=== PATIENT | female | born 1985 | race Caucasian/White ===

== ENCOUNTER 2016-09-10 06:15 | Day surgery (SDC) | payer BC ==
--- NOTE | 2016-09-09 18:15 | PREOPHP ---
DATE OF ADMISSION: 09/10/2016 HISTORY OF PRESENT ILLNESS: Ms. Carias is a 30-year-old 6, para 3, desires permanent rashaun gical sterilization. MEDICAL HISTORY: None. MEDICATIONS: None. PAST SURGICAL HISTORY: "Vein surgery." OBSTETRICAL HISTORY: Vaginal deliveries x3, termination of x3. GYNECOLOGIC HISTORY: Twelve, regular, 5 to 6 days. Denies any sexually transmitted disease. Sexua lly active with 1 partner. SOCIAL HISTORY: Denies any smoking, drugs or alcohol. FAMILY HISTORY: None. PHYSICAL EXAMINATION: HEENT: Within normal. LUNGS: CTA bilateral. CARDIOVASCULAR: S1, S2. Regular rhythm. ABDOMEN: Soft, nontender. Negative distention. EXTREMITIES: Negative edema. No calf tenderness. VAGINAL: Normal external genitalia. Cervix: Negative CMT, negative lesions. Adnexa: Negative ma ss, nontender bilateral. Fundus within normal limits. ASSESSMENT: Multiparity, desires permanent surgical sterilization. PLAN: Schedule for hysteroscopic tubal occlusion, also with Essure implant, possible laparoscopic b ilateral tubal ligation. Risks, benefits and alternatives explained. All questions were answered. Dictated By: JIE KOCH/HARDEEP Conf#: [id number] DID#: [id number]
[~2016-09-10] VITALS: Ht 172.7 cm; Wt 69.0 kg
[2016-09-10] VITALS (11 sets, daily range): BP systolic 107–120; BP diastolic 70–82; PULSE 68–81; RESP 12–30; Ht 172.7 cm; Wt 69.0 kg
[~2016-09-10 06:15] MED LIST: LACTATED RINGER'S 1,000 ML IV SCH
[2016-09-10 07:15] LABS: ADD SCAN DIFF NO
[2016-09-10 07:22] LABS: BASOPHILS % 0.5 % (0.0-2.0); EOSINOPHILS # 0.2 10^3/ul (0.0-0.5); EOSINOPHILS % 2.4 % (0.0-7.0); HEMATOCRIT 42.4 % (37.0-47.0); HEMOGLOBIN 14.2 g/dl (12.0-16.0); LYMPHOCYTES # 2.1 10^3/ul (0.8-2.9); LYMPHOCYTES % 24.9 % (15.0-51.0); MEAN CORPUSCULAR HEMOGLOBIN 30.3 pg (29.0-33.0); MEAN CORPUSCULAR HGB CONC 33.5 g/dl (32.0-37.0); MEAN CORPUSCULAR VOLUME 90.6 fl (82.0-101.0); MONOCYTE # 0.5 10^3/ul (0.3-0.9); MONOCYTES % 5.5 % (0.0-11.0); NEUTROPHIL # 5.6 10^3/ul (1.6-7.5); NEUTROPHILS % 66.5 % (39.0-77.0); PLATELET COUNT 208 10^3/UL (140-415); RED BLOOD COUNT 4.68 10^6/ul (4.20-5.40); RED CELL DISTRIBUTION WIDTH 12.4 % (11.5-14.5); WHITE BLOOD COUNT 8.4 10^3/ul (4.8-10.8)
[2016-09-10] MEDS ORDERED: MIDAZOLAM 1 MG/ML 2 ML INJ ONE (08:01)
[2016-09-10] MEDS ORDERED: ROPIVACAINE 0.5 % 30 ML VIAL ONE (08:02)
[2016-09-10] MEDS ORDERED: ONDANSETRON 4 MG INJ ONE (08:25)
[2016-09-10] MEDS ORDERED: DEXAMETHASONE 4 MG/ML 1 ML INJ ONE (08:25)
[2016-09-10] MEDS ORDERED: FAMOTIDINE 20 MG INJ ONE (08:25)
[2016-09-10] MEDS ORDERED: KETOROLAC 30 MG INJ ONE (08:36)
[2016-09-10] MEDS ORDERED: FENTAnyl 50 MCG/ML VIAL ONE (09:45)
[2016-09-10] MEDS ORDERED: PROCHLORPERAZINE 10 MG INJ IV PRN (10:00)
[2016-09-10] MEDS ORDERED: HYDROmorphONE (0.2 MG/ML) 10ML SYG IV PRN ×2 (10:00)
--- NOTE | 2016-09-10 10:09 | OPR ---
DATE OF OPERATION: 09/10/2016 PRIMARY DIAGNOSIS: Multiparity, desires permanent surgical sterilization. POSTOPERATIVE DIAGNOSIS: Multiparity, desires permanent surgical sterilization. OPERATION PERFORMED: Hysteroscopic tubal occlusion by Essluda, lot #[id number]. SURGEON: Curry Seaman MD AIR[employer]UMENT MECHANIC: None. FINDINGS: Bimanual size within normal, position anteverted. Hysteroscopic view of the uterus adequ ate. [place] normal. Adhesion absent. Placement of 3 trailing coils on the left and 3 trailing coil s on the right. ESTIMATED BLOOD LOSS: Minimal. SPECIMEN: None. COMPLICATIONS OF PROCEDURE: None. TYPE OF ANESTHESIA: General. DESCRIPTION OF PROCEDURE: After explaining the risks, benefits and alternatives, the patient consen t signed in chart, the patient was taken to the operating room where general anesthesia was obtained without difficulty. The patient was then examined under anesthesia and found to have a small antev erted uterus with normal adnexa. She was then prepared and draped in normal sterile fashion in dors al lithotomy position and prepared and draped in a sterile fashion. A heavy weighted speculum was t hen placed in the patient's vagina and the anterior lip of the cervix was grasped with a single gavin culum. A hysteroscope was then entered into the uterine cavity and findings noted above. Both tuba l ostia were identified. The delivery catheter was then inserted into the tubal ostia up to the angelo ck marker. The delivery catheter was retracted and the device deployed. After 10 seconds, the cath eter was detached from the device. The device was in good position with 3 trailing coils on the rig ht side. The procedure was repeated on the left side with 3 trailing coils. The procedure was comp leted. All instruments were removed from the patient's vagina. The patient tolerated procedure wel l. All counts were correct x2. Before discharge, the patient was given a prescription for hysteros alpingogram in 3 months and control use until hysterosalpingogram shows tubal occlusion. Dictated By: CURRY KOCH/HARDEEP Conf#: [id number] DID#: [id number]
== END 2016-09-10 11:00 | disposition home or self-care (01) ==
LOC: SDS 06:15
PROVIDERS: ATTEND Obstetrics & Gynecology
DX: Z30.2 Encounter for sterilization (principal)
CPT/HCPCS: 58565; 84703; 85025; A4264; J1100; J2250; J2405; J3010; Z7512; Z7610; J1885; J2795